=== PATIENT | female | born 1955 | race Caucasian/White ===

== ENCOUNTER 2017-12-12 14:38 | Emergency (ER) | payer OTHER ==
[2017-12-12] MEDS ORDERED: predniSONE 20 MG TAB ONE (15:29)
[2017-12-12] MEDS ORDERED: DIPHENHYDRAMINE 25 MG TAB/CAP ONE (15:29)
[2017-12-12] MEDS ORDERED: FAMOTIDINE 20 MG TAB ONE (15:30)
--- NOTE | 2017-12-12 16:39 | ER ---
Nurse's Notes [facility] Name: Elvi Alaniz Age: 61 yrs Sex: Female : 1955 Arrival Date: 12/12/2017 Time: 14:42 Bed 6 Private MD: None, None Diagnosis: Allergic Hives Presentation: 12/12 14:48 Presenting complaint: Patient states: hives to buttocks, torso, abdomen, and back that aa5 began today around 0700. Transition of care: patient was not received from another setting of care. Risk Assessment: Do you want to hurt yourself or someone else? Patient reports no desire to harm self or others. Initial Sepsis Screen: Does the patient meet any 2 criteria? No. Patient's initial sepsis screen is negative. Does the patient have a suspected source of infection? No. Patient's initial sepsis screen is negative. Care prior to arrival: None. 14:48 Method Of Arrival: Ambulatory aa5 14:48 Acuity: DONNIE 3 aa5 15:00 Onset: The symptoms/episode began/occurred acutely. Anaphylaxis evaluation, no signs or hj symptoms of anaphylaxis were noted. Onset of symptoms was December 12, 2017. Triage Assessment: 15:01 General: Appears in no apparent distress. uncomfortable, Behavior is calm, cooperative, hj appropriate for age. Historical: - Allergies: 14:50 No Known Allergies; aa5 - PMHx: 14:50 Hypertension; aa5 - PSHx: 14:50 Neck Surgery; stent to right leg; aa5 - Immunization history:: Adult Immunizations unknown. - Social history:: Smoking status: Patient uses tobacco products, smokes one-half pack cigarettes per day. - Ebola Screening: : No symptoms or risks identified at this time. Screenin:00 Abuse screen: Denies threats or abuse. Denies injuries from another. Nutritional hj screening: No deficits noted. Tuberculosis screening: No symptoms or risk factors identified. Fall Risk None identified. Assessment: 15:00 Pain: Denies pain. Respiratory: Airway is patent Respiratory effort is even, unlabored, hj Respiratory pattern is regular, symmetrical, Breath sounds are clear. Vital Signs: 14:50 BP 118 / 66; Pulse 125; Resp 16 S; Temp 98.0(TE); Pulse Ox 94% on R/A; Weight 80.74 kg aa5 (R); Height 5 ft. 1 in. (154.94 cm) (R); Pain 0/10; 16:32 BP 120 / 70; Pulse 90; Resp 18; Temp 98.2(O); Pulse Ox 97% on R/A; hj 14:50 Body Mass Index 33.63 (80.74 kg, 154.94 cm) [facility] ED Course: 14:42 Patient arrived in ED. mr 14:42 None, None is Private Physician. mr 14:49 Triage completed. aa5 14:49 Arm band placed on. aa5 14:59 Maximino White LVN is Primary Nurse. em 15:01 Patient has correct armband on for positive identification. Bed in low position. Call hj light in reach. Side rails up X 1. 15:06 Abner Palomo RN is Primary Nurse. hj 15:15 Sanjeev Johnston PA is PHCP. cp 15:15 Sanjeev Wright MD is Attending Physician. cp 16:48 No provider procedures requiring assistance completed. Patient did not have IV access hj during this emergency room visit. Administered Medications: 15:24 Drug: predniSONE 60 mg Route: PO; hj 15:32 Follow up: Response: No adverse reaction hj 15:24 Drug: Benadryl 50 mg Route: PO; hj 15:32 Follow up: Response: No adverse reaction hj 15:24 Drug: Pepcid 20 mg Route: PO; hj 15:32 Follow up: Response: No adverse reaction hj Outcome: 16:39 Discharge ordered by MD. cp 16:48 Discharged to home ambulatory. hj 16:48 Condition: stable 16:48 Discharge instructions given to patient, Instructed on discharge instructions, follow up and referral plans. medication usage, Demonstrated understanding of instructions, follow-up care, medications, Prescriptions given X 4. 16:48 Patient left the ED. hj Signatures: Pari Tatum WhiteMaximino LVN LVN Clarita Robles RN RN [facility] Abner Palomo RN RN hj Page, Corey, PA PA cp
--- NOTE | 2017-12-12 16:40 | EDPHYS ---
Physician Documentation [facility] Name: Elvi Alaniz Age: 61 yrs Sex: Female : 1955 Arrival Date: 12/12/2017 Time: 14:42 Bed 6 Private MD: None, None ED Physician Sanjeev Wright HPI: 12/12 15:25 This 61 yrs old Female presents to ER via Ambulatory with complaints of Hives.cp 15:25 The patient's rash thought to be caused by food. The rash is located on the body cp diffusely. The rash can be described as hives. Onset: The symptoms/episode began/occurred last night. 15:25 Associated signs and symptoms: Pertinent positives: itching, Pertinent negatives: cp difficulty breathing, fever, swelling of lips, swelling of throat, swelling of tongue. 15:25 Severity of symptoms: in the emergency department the symptoms are unchanged. Treatment cp given at home: none. Patient reports rash started after eating mixed cates pie yesterday. Historical: - Allergies: 14:50 No Known Allergies; aa5 - PMHx: 14:50 Hypertension; aa5 - PSHx: 14:50 Neck Surgery; stent to right leg; aa5 - Immunization history:: Adult Immunizations unknown. - Social history:: Smoking status: Patient uses tobacco products, smokes one-half pack cigarettes per day. - Ebola Screening: : No symptoms or risks identified at this time. ROS: 15:30 Constitutional: Negative for body aches, chills, fever, poor PO intake. cp 15:30 Eyes: Negative for injury, pain, redness, and discharge. cp 15:30 ENT: Negative for drainage from ear(s), ear pain, sore throat, difficulty swallowing, difficulty handling secretions. 15:30 Cardiovascular: Negative for chest pain, edema, palpitations. 15:30 Respiratory: Negative for cough, shortness of breath, wheezing. 15:30 Abdomen/GI: Negative for abdominal pain, vomiting, diarrhea, constipation. 15:30 Skin: Positive for rash, diffusely, Negative for cellulitis. 15:30 Neuro: Negative for altered mental status, dizziness, headache, weakness. 15:30 All other systems are negative. Exam: 15:35 Constitutional: The patient appears in no acute distress, alert, awake, cp non-diaphoretic, non-toxic, well developed, well nourished. 15:35 Head/Face: Normocephalic, atraumatic. cp 15:35 Eyes: Periorbital structures: appear normal, Conjunctiva: normal, no exudate, no cp injection, Lids and lashes: appear normal, bilaterally. 15:35 ENT: External ear(s): are unremarkable, Ear canal(s): are normal, clear, TM's: dullness, bilaterally, Nose: is normal, Mouth: is normal, no lip abnormalities, Posterior pharynx: is normal, airway is patent, no erythema, no exudate, no swelling, Voice: is normal. 15:35 Neck: ROM/movement: is normal, is supple, without pain, no range of motions limitations, no meningismus, no nuchal rigidity. 15:35 Chest/axilla: Palpation: is normal, no crepitus, no tenderness. 15:35 Cardiovascular: Rate: tachycardic, Rhythm: regular. 15:35 Respiratory: the patient does not display signs of respiratory distress, Respirations: normal, no use of accessory muscles, no retractions, no splinting, no tachypnea, labored breathing, is not present, Breath sounds: are clear throughout, no decreased breath sounds, no stridor, no wheezing. 15:35 Abdomen/GI: Exam negative for discomfort, distension, guarding. 15:35 Skin: consistent with hives, and is diffusely located. 15:35 Neuro: Orientation: to person, place \T\ time. Mentation: lucid, able to follow commands, cp Cerebellar function: is grossly normal, Motor: moves all fours, strength is normal, Sensation: no obvious gross deficits. Vital Signs: 14:50 BP 118 / 66; Pulse 125; Resp 16 S; Temp 98.0(TE); Pulse Ox 94% on R/A; Weight 80.74 kg aa5 (R); Height 5 ft. 1 in. (154.94 cm) (R); Pain 0/10; 16:32 BP 120 / 70; Pulse 90; Resp 18; Temp 98.2(O); Pulse Ox 97% on R/A; hj 14:50 Body Mass Index 33.63 (80.74 kg, 154.94 cm) aa5 MDM: 15:15 Patient medically screened. cp 15:30 Differential diagnosis: allergic reaction, anaphylaxis, angioedema. cp 16:37 Data reviewed: vital signs, nurses notes, and as a result, I will discharge patient. cp 16:37 Counseling: I had a detailed discussion with the patient and/or guardian regarding: the cp historical points, exam findings, and any diagnostic results supporting the discharge/admit diagnosis, to return to the emergency department if symptoms worsen or persist or if there are any questions or concerns that arise at home. Response to treatment: the patient's symptoms have mildly improved after treatment, and as a result, I will discharge patient. 12/12 16:25 Order name: Vital Signs: please repeat complete set; Complete Time: 16:32 cp Administered Medications: 15:24 Drug: predniSONE 60 mg Route: PO; hj 15:32 Follow up: Response: No adverse reaction hj 15:24 Drug: Benadryl 50 mg Route: PO; hj 15:32 Follow up: Response: No adverse reaction hj 15:24 Drug: Pepcid 20 mg Route: PO; hj 15:32 Follow up: Response: No adverse reaction hj Disposition: 12/13 16:13 Co-signature as Attending Physician, Sanjeev Wright MD I agree with the assessment and [facility] plan of care. Disposition: 12/12/17 16:39 Discharged to Home. Impression: Allergic Hives. - Condition is Stable. - Discharge Instructions: Hives. - Prescriptions for diphenhydramine HCl 50 mg Oral capsule - take 1 capsule by ORAL route 3 times per day no driving while taking medication; 15 capsule. Pepcid 20 mg Oral Tablet - take 1 tablet by ORAL route every 12 hours for 5 days; 10 tablet. Prednisone 20 mg Oral Tablet - take 2 tablets by ORAL route once daily for 5 days start morning of 12-13-2017; 10 tablet. Albuterol Sulfate 90 mcg/actuation - inhale 1-2 puff by INHALATION route every 4-6 hours; 1 Inhaler. - Medication Reconciliation Form, Thank You Letter, Antibiotic Education, Prescription Opioid Use form. - Follow up: Private Physician; When: 1 - 2 days; Reason: Recheck today's complaints. - Problem is new. - Symptoms have improved. Signatures: Sanjeev Wright MD MD cha Calderon, Audri RN RN aa5 Abner Palomo RN RN hj Sanjeev Johnston PA PA cp Corrections: (The following items were deleted from the chart) 12/12 16:48 16:39 12/12/2017 16:39 Discharged to Home. Impression: Allergic Hives. Condition is hj Stable. Discharge Instructions: Hives. Prescriptions for diphenhydramine HCl 50 mg Oral capsule - take 1 capsule by ORAL route 3 times per day no driving while taking medication; 15 capsule, Pepcid 20 mg Oral Tablet - take 1 tablet by ORAL route every 12 hours for 5 days; 10 tablet, Prednisone 20 mg Oral Tablet - take 2 tablets by ORAL route once daily for 5 days start morning of 12-13-2017; 10 tablet. and Forms are Medication Reconciliation Form, Thank You Letter, Antibiotic Education, Prescription Opioid Use. Follow up: Private Physician; When: 1 - 2 days; Reason: Recheck today's complaints. Problem is new. Symptoms have improved. cp
== END 2017-12-12 16:48 | disposition home or self-care (01) ==
LOC: ER 14:38
DX: L50.0 Allergic urticaria (principal); I10 Essential (primary) hypertension; F17.210 Nicotine dependence, cigarettes, uncomplicated
CPT/HCPCS: 99283; J7512

== ENCOUNTER 2022-04-24 17:31 | Inpatient (IN) | payer OTHER ==
--- OUTSIDE RECORDS SUMMARY | 2022-04-24 17:34 | XMS REPORT | Continuity of Care Document ---
:1955 Author Organization [facility] Address [address] [place] [address] [address] [place] [address] Care Team Providers Name Role Phone PADDY SORENSEN Attending Clinician Unavailable MD PADDY SORENSEN Attending Clinician Unavailable PADDY SORENSEN Admitting Clinician Unavailable MD PADDY SORENSEN Admitting Clinician Unavailable Problems This patient has no known problems. Allergies, Adverse Reactions, Alerts This patient has no known allergies or adverse reactions. Medications This patient has no known medications. Procedures This patient has no known procedures. Encounters Start End Encounter Admission Attending Care Care Encounter Source Date/Time Date/Time Type Type Clinicians Facility Department ID 2022-04-14 2022-04-14 Outpatient [facility] [id number] [place] 00:00:00 00:00:00 PADDY [address] 2021-04-08 2021-04-08 Outpatient [facility] [id number] [place] 00:00:00 00:00:00 PADDY [address] 2021-01-03 2021-01-04 Outpatient [facility] [id number] [place] 00:00:00 00:00:00 PADDY [address] 2020-12-03 2020-12-03 Outpatient [facility] [id number] [place] 00:00:00 00:00:00 PADDY [address] 2020-11-19 2020-11-19 Outpatient [facility] [id number] [place] 00:00:00 00:00:00 PADDY [address] 2020-10-08 2020-10-08 Outpatient [facility] [id number] [place] 00:00:00 00:00:00 PADDY [address] 2020-09-26 2020-09-26 Outpatient [facility] [id number] [place] 00:00:00 00:00:00 PADDY [address] 2020-09-25 2020-09-25 Outpatient [facility], [facility] [id number] [place] 00:00:00 00:00:00 PADDY [address] 2020-09-25 2020-09-25 Outpatient [facility], [facility] [id number] [place] 00:00:00 00:00:00 PADDY [address] 2020-09-25 2020-09-25 Outpatient [facility], [facility] [id number] [place] 00:00:00 00:00:00 PADDY [address] 2020-09-17 2020-09-17 Outpatient [facility], [facility] [id number] [place] 00:00:00 00:00:00 PADDY [address] 2020-09-17 2020-09-17 Outpatient [facility]OR[facility], [facility] [id number] [place] 00:00:00 00:00:00 PADDY [address] Results Test Description Test Time Test Comments Results Result Comments Source SARS-CoV-2 (COVID-19) RNA [Presence] in Respiratory sp ecimen by 2020-09-26 00:05:28 DONNY with probe detection Test Item Value Reference Range Interpretation Comme nts SARS-CoV-2 (COVID-19) RNA [Presence] in Respiratory Not detected No t-Detected specimen by DONNY with probe detection (test code = 51615-2) [facility]
[2022-04-24 19:48] LABS: Protime INR 2.05
[2022-04-24] MEDS ORDERED: VANCOMYCIN 1 GM/VIAL ONE (19:54)
[2022-04-24] MEDS ORDERED: VANCOMYCIN 500 MG/VIAL ONE (19:54)
[2022-04-24] MEDS ORDERED: NA CHLORIDE 0.9% 250 ML ONE (19:54)
[2022-04-24 20:00] LABS: Albumin 2.9 g/dL (3.4-5.0); Bilirubin Total 0.3 mg/dL (0.2-1.0); Potassium 3.7 mmol/L (3.5-5.1); Protein, Total 7.1 g/dL (6.4-8.2)
[2022-04-24 20:02] LABS: Absolute Lymphocytes (CBC) 1.6 K/uL (0.7-4.9); Hematocrit 44.1 % (36.0-45.0); Lymphocytes % 15.7 % (15.3-44.8); MCV 102.5 fL (80-100); MPV 7.9 fL (7.6-11.3)
[2022-04-24 20:26] LABS: SARS-CoV-2 Antigen Rapid Res Negative (Negative)
--- NOTE | 2022-04-24 20:26 | EDPHYS ---
Physician Documentation [facility] Name: Elvi Alaniz Age: 66 yrs Sex: Female : 1955 Arrival Date: 04/24/2022 Time: 17:35 Bed 16 Private MD: Sha Lowry C ED Physician Sukhdeep Price HPI: 04/24 19:42 This 66 yrs old Female presents to ER via Wheelchair with complaints of Sent By Alen. snw 19:42 The patient presents with pain, swelling, tenderness, redness. The complaints affect snw the bilateral lower legs. Context: The problem was sustained at home, resulted from a chronic condition. Onset: The symptoms/episode began/occurred gradually. Severity of symptoms: At their worst the symptoms were moderate. The patient has experienced similar episodes in the past, multiple times. The patient has been recently seen by a physician: the patient's primary care provider, Dr. Lowry yesterday. Historical: - Allergies: 17:44 No Known Allergies; vg1 - Home Meds: 17:44 Xarelto oral [Active]; Lisinopril Oral [Active]; vg1 - PMHx: 17:44 Hypertension; Chronic obstructive lung disease; vg1 - PSHx: 17:44 Hysterectomy; Cholecystectomy; vg1 - Immunization history:: Client reports receiving the 2nd dose of the Covid vaccine. - Social history:: Smoking status: Patient reports the use of cigarette tobacco products, smokes one-half pack cigarettes per day. ROS: 18:16 Constitutional: Negative for fever, chills, and weight loss, Eyes: Negative for injury, snw pain, redness, and discharge, ENT: Negative for injury, pain, and discharge, Neck: Negative for injury, pain, and swelling, Cardiovascular: Negative for chest pain, palpitations, and edema, Respiratory: Negative for shortness of breath, cough, wheezing, and pleuritic chest pain, Abdomen/GI: Negative for abdominal pain, nausea, vomiting, diarrhea, and constipation, Back: Negative for injury and pain, : Negative for injury, bleeding, discharge, and swelling, Skin: Negative for injury, rash, and discoloration, Neuro: Negative for headache, weakness, numbness, tingling, and seizure. 18:16 MS/extremity: Positive for erythema, swelling, tenderness, of the bilateral lower extremities. Exam: 18:14 Head/Face: Normocephalic, atraumatic. ENT: Nares patent. No nasal discharge, no snw septal abnormalities noted. Tympanic membranes are normal and external auditory canals are clear. Oropharynx with no redness, swelling, or masses, exudates, or evidence of obstruction, uvula midline. Mucous membranes moist. 18:14 Neck: Trachea midline, no thyromegaly or masses palpated, and no cervical lymphadenopathy. Supple, full range of motion without nuchal rigidity, or vertebral point tenderness. No Meningismus. Chest/axilla: Normal chest wall appearance and motion. Nontender with no deformity. No lesions are appreciated. Cardiovascular: Regular rate and rhythm with a normal S1 and S2. No gallops, murmurs, or rubs. Normal PMI, no JVD. No pulse deficits. Respiratory: Lungs have equal breath sounds bilaterally, clear to auscultation and percussion. No rales, rhonchi or wheezes noted. No increased work of breathing, no retractions or nasal flaring. Abdomen/GI: Soft, non-tender, with normal bowel sounds. No distension or tympany. No guarding or rebound. No evidence of tenderness throughout. Back: No spinal tenderness. No costovertebral tenderness. Full range of motion. Neuro: Awake and alert, GCS 15, oriented to person, place, time, and situation. Cranial nerves II-XII grossly intact. Motor strength 5/5 in all extremities. Sensory grossly intact. Cerebellar exam normal. Normal gait. 18:14 Constitutional: The patient appears alert, awake, pale. 18:14 Eyes: Conjunctiva: pale. 18:14 Skin: Appearance: Color: pale, lower extremities bilaterally with hyperemia, weeping, tightness. Vital Signs: 17:39 BP 130 / 66; Pulse 94; Resp 22; Temp 99.1(O); Pulse Ox 93% on R/A; Weight 77.56 kg; vg1 Height 5 ft. 1 in. (154.94 cm); Pain 9/10; 17:39 Body Mass Index 32.31 (77.56 kg, 154.94 cm) vg1 MDM: 17:54 Patient medically screened. snw 19:55 Data reviewed: vital signs, nurses notes. Data interpreted: Pulse oximetry: on room air snw is 93 %. Interpretation: hypoxia. Plan: O2 by NC applied. Counseling: I had a detailed discussion with the patient and/or guardian regarding: the historical points, exam findings, and any diagnostic results supporting the discharge/admit diagnosis, lab results, radiology results, the need for further work-up and treatment in the hospital. Physician consultation: Sukhdeep Price MD and will see patient in ED, would like admission per Dr. Sha Lowry MD. 04/24 17:55 Order name: Blood Culture Adult (2) snw 04/24 17:55 Order name: CBC with Diff; Complete Time: 13:26 snw 04/24 17:55 Order name: CMP; Complete Time: 13:26 snw 04/24 17:55 Order name: Lactate; Complete Time: 20:19 snw 04/24 17:55 Order name: Protime (+inr); Complete Time: 19:49 snw 04/24 17:55 Order name: Ptt, Activated; Complete Time: 19:49 snw 04/24 19:17 Order name: SARS RAPID; Complete Time: 13:26 snw 04/24 20:36 Order name: Vancomycin Level Trough EDMS 04/24 20:36 Order name: Vancomycin Peak; Complete Time: 13:26 EDMS 04/24 20:36 Order name: Basic Metabolic Panel EDMS 04/24 20:36 Order name: Basic Metabolic Panel; Complete Time: 13:26 EDMS 04/24 20:36 Order name: CBC with Automated Diff EDMS 04/24 20:36 Order name: CBC with Automated Diff; Complete Time: 13:26 EDMS 04/24 21:16 Order name: Vancomycin Level Trough; Complete Time: 13:26 EDMS 04/24 17:55 Order name: Accucheck; Complete Time: 18:24 snw 04/24 17:55 Order name: Cardiac monitoring; Complete Time: 18:24 snw 04/24 17:55 Order name: EKG - Nurse/Tech; Complete Time: 18:24 snw 04/24 17:55 Order name: IV Saline Lock - Large Bore; Complete Time: 19:12 snw 04/24 17:55 Order name: Labs collected and sent; Complete Time: 19:12 snw 04/24 17:55 Order name: O2 Per Protocol; Complete Time: 18:24 snw 04/24 17:55 Order name: O2 Sat Monitoring; Complete Time: 18:24 snw 04/24 17:55 Order name: Vital Signs; Complete Time: 18:24 snw 04/24 18:14 Order name: US LE Arterial Bilateral; Complete Time: 13:26 snw EC:20 Rate is 91 beats/min. Rhythm is regular. QRS [place] is Normal. [place] interval is normal. No snw ST changes noted. Clinical impression: Normal ECG. Administered Medications: 20:07 Drug: vancoMYCIN 1.5 grams Route: IVPB; Rate: calculated rate; Site: right forearm; ke1 21:45 Follow up: IV Status: Completed infusion ke1 21:46 Follow up: Response: No adverse reaction ke1 21:46 Drug: Zosyn (piperacillin-tazobactam) 3.375 grams Route: IVPB; Infused Over: 60 mins; ke1 Site: right forearm; Disposition: 20:24 Co-signature as Attending Physician, Sukhdeep Price MD I agree with the assessment and kdr plan of care. Disposition Summary: 04/24/22 20:25 Hospitalization Ordered Hospitalization Status: Inpatient Admission kdr Provider: Drew Lowry kdr Condition: Fair kdr Problem: new kdr Symptoms: have improved kdr Bed/Room Type: Standard kdr Location: Telemetry/MedSurg (Inpatient)(04/25/22 05:34) Room Assignment: 405(04/25/22 05:34) Diagnosis - Cellulitis of left lower limb kdr - Cellulitis of right lower limb kdr Forms: - Medication Reconciliation Form kdr - SBAR form kdr Signatures: Dispatcher [employer] EDDC Bita Johnston RN RN mw Rittger, Kevin, MD MD kdr Adrienne Vieyra, RELAY SHOP SUPERVISOR-C RELAY SHOP SUPERVISOR-Csnw Yesenia Brasher RN RN bb Garcia, Victoria RN RN vg1 Cynthia Velazquez RN RN ke1 Corrections: (The following items were deleted from the chart) 21:44 20:25 Telemetry/MedSurg (Inpatient) kdr 21:44 20:25 kdr herb 04/25 05:34 04/24 21:44 [facility] ER HOLD bb 04/25 05:34 04/24 21:44 ERHOLD- herb
--- NOTE | 2022-04-24 20:26 | ER ---
Nurse's Notes [facility] Name: Elvi Alaniz Age: 66 yrs Sex: Female : 1955 Arrival Date: 04/24/2022 Time: 17:35 Bed 16 Private MD: Sha Lowry C Diagnosis: Cellulitis of left lower limb;Cellulitis of right lower limb Presentation: 04/24 17:39 Chief complaint: Patient states: Sent from Dr Lowry's office due to [place] leg cellulitis. vg1 Coronavirus screen: Vaccine status: Patient reports receiving the 2nd dose of the covid vaccine. Client denies travel out of the [place] in the last 14 days. Ebola Screen: Patient negative for fever greater than or equal to 101.5 degrees Fahrenheit, and additional compatible Ebola Virus Disease symptoms. Initial Sepsis Screen: Does the patient meet any 2 criteria? RR > 20 per min. HR > 90 bpm. Does the patient have a suspected source of infection?. Risk Assessment: Do you want to hurt yourself or someone else? Patient reports no desire to harm self or others. Onset of symptoms was April 17, 2022. 17:39 Method Of Arrival: Wheelchair vg1 17:39 Acuity: DONNIE 3 vg1 Triage Assessment: 17:44 General: Appears uncomfortable, Behavior is calm, cooperative. Pain: Complains of pain vg1 in right leg and left leg Pain currently is 9 out of 10 on a pain scale. Neuro: Level of Consciousness is awake, alert, obeys commands, Oriented to person, place, time, situation. Respiratory: Airway is patent Respiratory effort is even, unlabored. Derm: Rash noted that is red. Historical: - Allergies: 17:44 No Known Allergies; vg1 - Home Meds: 17:44 Xarelto oral [Active]; Lisinopril Oral [Active]; vg1 - PMHx: 17:44 Hypertension; Chronic obstructive lung disease; vg1 - PSHx: 17:44 Hysterectomy; Cholecystectomy; vg1 - Immunization history:: Client reports receiving the 2nd dose of the Covid vaccine. - Social history:: Smoking status: Patient reports the use of cigarette tobacco products, smokes one-half pack cigarettes per day. Screenin:00 Abuse screen: Denies threats or abuse. Denies injuries from another. Nutritional bp screening: No deficits noted. Tuberculosis screening: No symptoms or risk factors identified. Fall Risk None identified. Assessment: 18:00 General: SEE TRIAGE NOTE. bp Vital Signs: 17:39 BP 130 / 66; Pulse 94; Resp 22; Temp 99.1(O); Pulse Ox 93% on R/A; Weight 77.56 kg; vg1 Height 5 ft. 1 in. (154.94 cm); Pain 9/10; 17:39 Body Mass Index 32.31 (77.56 kg, 154.94 cm) vg1 ED Course: 17:35 Patient arrived in ED. rg4 17:35 Sha Lowry MD is Private Physician. rg4 17:35 Adrienne [facility]C [facility] snw 17:35 Clifford Morton MD is Attending Physician. snw 17:44 Triage completed. vg1 17:44 Arm band placed on. vg1 17:47 Raymond Boggs RN is Primary Nurse. bp 18:00 Patient has correct armband on for positive identification. Bed in low position. Call bp light in reach. Side rails up X2. 19:10 Inserted saline lock: 22 gauge in right forearm, using aseptic technique. Blood bp collected. 19:28 Primary Nurse role handed off by Raymond Boggs RN jl7 19:37 Cynthia Velazquez RN is Primary Nurse. ke1 19:54 Attending Physician role handed off by Clifford Morton MD kdr 19:54 Sukhdeep Price MD is Attending Physician. kdr 20:03 US LE Arterial Bilateral In Process Unspecified. EDMS 20:24 Drew Lowry MD is Hospitalizing Provider. kdr Administered Medications: 20:07 Drug: vancoMYCIN 1.5 grams Route: IVPB; Rate: calculated rate; Site: right forearm; ke1 21:45 Follow up: IV Status: Completed infusion ke1 21:46 Follow up: Response: No adverse reaction ke1 21:46 Drug: Zosyn (piperacillin-tazobactam) 3.375 grams Route: IVPB; Infused Over: 60 mins; ke1 Site: right forearm; Outcome: 20:25 Decision to Hospitalize by Provider. kdr 04/25 08:19 Patient left the ED. eb Signatures: Dispatcher [employer] EDMS Sukhdeep Price MD MD kdr Adrienne Vieyra, DATA ENTRY REPRESENTATIVE-C DATA ENTRY REPRESENTATIVE-Csnw Lorena Simmons rg4 Mack Duque, RN RN jl7 Raymond Boggs, RN RN Salina Acosta [place], RN RN vg1 Cynthia Velazquez, RN RN ke1
[2022-04-24] MEDS ORDERED: VANCOMYCIN 1 GM in NA CHLORIDE 0.9% 250 ML IVPB SCH (20:29)
--- NOTE | 2022-04-24 20:29 | RAD REPORT ---
EXAM DESCRIPTION: US - Lower Extremity Arterial Bilat - 04/24/2022 8:01 pm CLINICAL HISTORY: Leg pain COMPARISON: None FINDINGS: Right common femoral, superficial femoral and popliteal arteries demonstrate monophasic waveforms The right posterior tibial and dorsalis pedis arteries demonstrate monophasic waveforms The left common femoral, superficial femoral and popliteal arteries demonstrate monophasic waveforms The left posterior tibial and dorsalis pedis arteries demonstrate monophasic waveforms Grayscale, color and spectral analysis performed on all vessels IMPRESSION: Bilateral monophasic arterial waveforms lower extremities may indicate significant aorto iliac disease
[2022-04-24] MEDS ORDERED: VANCOMYCIN 1.5 GM in NA CHLORIDE 0.9% 500 ML IVPB SCH (21:00)
[2022-04-24] MEDS ORDERED: NA CHLORIDE 0.9% 100 ML IV ONE (21:27)
[2022-04-24] MEDS ORDERED: PIPERACIL/TAZO 3.375 GM VIAL IV ONE (21:28)
[2022-04-25] MEDS: PIPER TAZO 3.375 GM in NA CHLORIDE 0.9% 100 ML IV SCH ×3 (01:00→17:01)
[2022-04-25 01:40] LABS: Absolute Lymphocytes (CBC) 1.6 K/uL (0.7-4.9); Hematocrit 41.4 % (36.0-45.0); MCV 102.6 fL (80-100); MPV 7.9 fL (7.6-11.3); RBC Red Blood Cell Count 4.03 M/uL (3.86-4.86)
[2022-04-25] MEDS: IPRATROPIUM BROM 0.5MG/2.5ML NEB SCH ×4 (02:00→20:00)
[2022-04-25] MEDS: ALBUTEROL 2.5 MG/3 ML NEB SOL NEB SCH ×4 (02:00→20:00)
[2022-04-25] MEDS ORDERED: ACETAMINOPHEN 500 MG TAB ONE (06:24)
[2022-04-25] MEDS: ACETAMINOPHEN 500 MG TAB PO PRN ×2 (07:20→19:04)
[2022-04-25] MEDS ORDERED: VANCOMYCIN 1 GM in NA CHLORIDE 0.9% 250 ML IVPB SCH (09:00)
[2022-04-25] MEDS: buPROPion HCL 100 MG TAB PO SCH (09:11)
--- NOTE | 2022-04-25 11:30 | RAD REPORT ---
EXAM DESCRIPTION: RAD - Chest Pa And Lat (2 Views) - 04/25/2022 11:06 am CLINICAL HISTORY: COPD COMPARISON: <Comparisons> FINDINGS: Lines: None. Lungs: No evidence of edema or pneumonia. Pleural: No significant pleural effusions or pneumothorax. Cardiac: Similar size configuration. Mediastinum: Within normal limits. Bones: No acute fractures. Other: None IMPRESSION: No acute cardiopulmonary disease.
--- NOTE | 2022-04-25 11:32 | RAD REPORT ---
EXAM DESCRIPTION: US - Extrem Venous W Compress Abe - 04/25/2022 11:27 am CLINICAL HISTORY: leg edema COMPARISON: <Comparisons> TECHNIQUE: Real-time sonographic evaluation of the lower extremity deep venous systems was performed using color Doppler, grayscale, and compression. FINDINGS: Bilateral lower extremities. Normal compressibility, flow augmentation, phasic flow and spontaneous flow is identified in both the left and right lower extremity deep venous systems. No intraluminal filling defects seen. IMPRESSION: No DVT in either lower extremity.
[2022-04-25] MEDS ORDERED: INFLUENZA VACCINE (for 6+ mo) 0.5 ML DOSE IMVAC ONE (12:00)
[2022-04-25] MEDS ORDERED: PNEUMOCOCCAL VACCINE 0.5 ML IMVAC ONE (12:00)
[2022-04-25] MEDS: SILVER SULFADIAZINE 1% 50 GM TOP SCH ×2 (12:55→22:50)
--- NOTE | 2022-04-25 13:27 | HP ---
Date of Admission: 04/25/2022 Chief Complaint: Leg swelling and redness of leg and pain in both legs. History Of Present Illness: This is a 66-year-old pleasant female patient with history of significant peripheral vascular disease in both legs under care of applications engineer manufacturing, Dr. Fagan, in [place] and had stent placement in her leg and recently saw him and he started her on Xarelto 20 mg daily and also started her on Levaquin 500 mg daily as of April 16, 2022, for cellulitis of right lower extremity. Patient has this redness of both lower extremities that she reports is looking like the way it looks lately for last 2 weeks and also noted to have some clear colored fluid discharge from the lower part of the right leg. Denies any fever. Has some pain and discomfort in this leg. Patient reports that Dr. Fagan is planning to do another peripheral angiogram for evaluation of her leg circulation, but he is waiting for her leg infection problem to get better. When I saw her at office on 04/23/2022 with all these problems, I recommended her to get admitted to the hospital and patient refused and reported that she would go to hospital next day. She came into the emergency room late yesterday evening and after she was evaluated, she was admitted to the hospital. Allergies: TO SULFA DRUGS CAUSING NAUSEA AND VOMITING. Medications: Albuterol inhaler 2 puffs 4 times a day as needed for shortness of breath, Trilogy inhaler 1 puff daily, atorvastatin 40 mg daily at bedtime, bupropion 100 mg daily, trazodone 50 mg daily at bedtime, Xarelto 20 mg daily, nitroglycerin p.r.n., lisinopril/HCTZ 10/12.5 one tab by mouth 2 times a day, and Levaquin 500 mg daily. Review of Systems: Cardiovascular: As mentioned above. Dermatology: As mentioned above. Respiratory: Shortness of breath with activity. All other systems reviewed and negative. Past Medical History: Significant for COPD, hypertension, hyperlipidemia, coronary artery disease, peripheral vascular disease, anxiety, insomnia. Past Surgical History: Angioplasty with stent placement of her right leg in 2016, 2017, and 2020 and left leg in 2020. Cholecystectomy, tubal ligation, and hysterectomy. Family History: Father , had diabetes and kidney failure. Mother , details unknown. Sister has hypertension. Social History: Positive for smoking. Alcohol use negative. Physical Examination: Vital Signs: This morning, temperature 98.9, pulse 93, respiratory rate 16, blood pressure 109/61, oxygen saturation 99%. Height 5 feet 1 inch, weight 170 pounds. General: Awake, alert, oriented, not in distress. HEENT: Head atraumatic, normocephalic. Conjunctivae nonerythematous. Sclerae white. Mouth, no thrush or edema noted. Ears/Nose, no mass, lesion, discharge noted. Neck: Supple. No JVD, lymph nodes, bruit, thyromegaly noted. Lungs: Bilateral good equal air entry. Clear to auscultation. No rhonchi. No rales. Heart: Normal heart sounds, no murmur or gallop. Abdomen: Soft, bowel sounds normal. No guarding, rigidity, tenderness, mass, hepatosplenomegaly, distention, or bruit noted. Extremities: Bilateral grade 2 pedal edema with redness of skin extending in both lower extremities from the knees all the way down to her toes. There is no open wound. Right lower posterolateral extremity had lot of excoriated skin with clear fluid discharge when she was at office 2 days ago. Today, I do not see any clear fluid discharge and all that excoriated skin has scabs present over it. Skin: No rash, ulcer, cellulitis. Lymphatics: No lymph node enlargement in neck, supraclavicular, infraclavicular region. Neuro: No focal neurological deficit. Chest: Unremarkable. External Genitalia: Deferred. Rectal: Deferred. Laboratory Data: Yesterday, white count 10.3, hemoglobin 14.4, platelets 248. Today, white count 11.6, hemoglobin 13.6, platelets 251. Yesterday, sodium 134, potassium 3.7, chloride 97, bicarb 32, BUN 8, creatinine 0.73, glucose 126. Liver function tests are unremarkable. Yesterday, sodium 135, potassium 4, chloride 99, bicarb 35, BUN 7, creatinine 0.74, glucose 118. Arterial Doppler of both lower extremities shows bilateral monophasic arterial waveform indicating significant aortoiliac disease. Impression: 1. Cellulitis, bilateral lower extremity. 2. Lymphedema, bilateral legs. 3. Peripheral vascular disease. 4. Coronary artery disease. 5. Hypertension. 6. Hyperlipidemia. 7. Chronic obstructive pulmonary disease. 8. Anxiety. 9. Insomnia. Plan: We will admit patient to hospital for further evaluation and management of this problem. Patient is appropriate for inpatient and is expected to spend 2 midnights in hospital. We will go ahead and give her antibiotic vancomycin and Zosyn per order. Consult Pharmacy to manage vancomycin dosing. We will get a venous Doppler done on both lower extremities today and get a chest x-ray done today. For COPD, we will continue nebulizer treatment using albuterol and Atrovent per order. For hypertension, there is no need for antihypertensive medication at this point considering the patient's blood pressure readings and at appropriate time, we will decide about starting her antihypertensive medication. For hyperlipidemia, we will go ahead and continue her statin therapy, which is atorvastatin 40 mg daily at bedtime and get a fasting lipid profile tomorrow. We will also start applying Silvadene cream topically to the right lower leg. I did talk to patient regarding importance of getting lymphedema treatment once the cellulitis improves as she has chronic bilateral leg swelling and we will refer her to outpatient lymphedema clinic once this leg problem gets resolved and all these details were discussed with her today. Patient was advised to quit smoking. Unfortunately, she has a longstanding history of smoking. We will continue her anxiety medication, which is bupropion and trazodone for insomnia. MATT/MODL Voice ID: [id number] SANDY
[2022-04-25] MEDS: DIPHENHYDRAMINE 25 MG TAB/CAP PO PRN (17:01)
[2022-04-25] MEDS: RIVAROXABAN 20 MG TABLET PO SCH (17:01)
[2022-04-25] MEDS: NICOTINE 14 MG/PAT TD SCH (18:44)
[2022-04-25] MEDS ORDERED: VANCOMYCIN 1.5 GM in NA CHLORIDE 0.9% 500 ML IVPB SCH (21:00)
[2022-04-25] MEDS: ATORVASTATIN 40 MG TAB PO SCH (22:50)
[2022-04-25] MEDS: TRAZODONE 50 MG TABLET PO SCH (22:50)
[2022-04-25] MEDS: VANCOMYCIN 1.5 GM in NA CHLORIDE 0.9% 500 ML IVPB SCH (22:51)
[2022-04-26] MEDS: HYDROCODONE/APAP 5/325 MG TAB PO PRN ×3 (00:37→21:09)
[2022-04-26] MEDS: DIPHENHYDRAMINE 25 MG TAB/CAP PO PRN ×2 (00:49→21:09)
[2022-04-26] MEDS: ALBUTEROL 2.5 MG/3 ML NEB SOL NEB SCH ×2 (02:00→08:00)
[2022-04-26] MEDS: IPRATROPIUM BROM 0.5MG/2.5ML NEB SCH ×2 (02:00→08:00)
[2022-04-26] MEDS: PIPER TAZO 3.375 GM in NA CHLORIDE 0.9% 100 ML IV SCH ×3 (02:34→16:29)
[2022-04-26 06:34] LABS: Absolute Lymphocytes (CBC) 1.9 K/uL (0.7-4.9); Hematocrit 38.9 % (36.0-45.0); Lymphocytes % 24.5 % (15.3-44.8); MPV 7.9 fL (7.6-11.3); RBC Red Blood Cell Count 3.78 M/uL (3.86-4.86)
[2022-04-26 06:53] LABS: Magnesium 2.5 mg/dL (1.8-2.4); Potassium 4.1 mmol/L (3.5-5.1)
[2022-04-26] MEDS: NICOTINE 14 MG/PAT TD SCH (08:38)
[2022-04-26] MEDS: buPROPion HCL 100 MG TAB PO SCH (08:38)
[2022-04-26] MEDS: SILVER SULFADIAZINE 1% 50 GM TOP SCH ×2 (08:40→21:10)
[2022-04-26] MEDS ORDERED: IPRATROPIUM BROM 0.5MG/2.5ML NEB PRN (09:22)
[2022-04-26] MEDS ORDERED: ALBUTEROL 2.5 MG/3 ML NEB SOL NEB PRN (09:22)
[2022-04-26 09:35] LABS: Folic Acid, (Folate) 5.1 ng/mL (3.1-17.5)
--- NOTE | 2022-04-26 12:59 | PN ---
Date of Progress Note: 04/26/2022 Subjective: Patient was seen this morning for followup. No new complaints or problems reported by t he patient. Objective: General: Lying in bed not in distress. Vital Signs: Reviewed. HEENT: Unremarkable. Lungs: Clear to auscultation. Heart: Sounds normal. Abdomen: Soft. Bowel sounds normal. No guarding, rigidity, tenderness, distention. Extremities: Bilateral leg edema, grade 1, overall is better than before. Redness of the skin is st ill persistent in both lower extremities below the knee all the way down to her toes. There is no op en wound, no discharge, no bleeding. Laboratory Data: White count 7.9, hemoglobin 12.8, platelets 216. Sodium 136, potassium 4.1, chlori de 102, bicarb 34, BUN 10, creatinine 0.75, glucose 99. Triglyceride 89, total cholesterol 87, LDL 3 7, HDL 32. Her venous Doppler of both lower extremities was negative for DVT. Chest x-ray, no acute cardiopulmonary changes. Impression: 1.Cellulitis, bilateral lower extremity. 2.Peripheral vascular disease. 3.Chronic obstructive pulmonary disease. 4.Lymphedema, legs. Plan: Patient started to have some itching in her both lower extremities, mostly lower thigh and low er legs. No rash noted anywhere on the body and Benadryl was ordered. Patient continues to smoke an d yesterday she requested to go down to smoke and we have also ordered nicotine patch for her. We wi ll continue current IV antibiotics. I had a long discussion with her today regarding smoking related lung damage and vascular problem and with her ongoing smoking and longstanding history of smoking, h er overall prognosis is guarded with all this health problems and she was strongly advised to quit smoking completely. I will see he r tomorrow for followup. MATT/MODL Voice ID: [id number] Report ID: [id number]
[2022-04-26] MEDS: RIVAROXABAN 20 MG TABLET PO SCH (16:30)
[2022-04-26] MEDS: ATORVASTATIN 40 MG TAB PO SCH (21:09)
[2022-04-26] MEDS: TRAZODONE 50 MG TABLET PO SCH (21:09)
[2022-04-26] MEDS: VANCOMYCIN 1.5 GM in NA CHLORIDE 0.9% 500 ML IVPB SCH (21:10)
[2022-04-27] MEDS: PIPER TAZO 3.375 GM in NA CHLORIDE 0.9% 100 ML IV SCH ×3 (01:34→16:54)
[2022-04-27] MEDS: DIPHENHYDRAMINE 25 MG TAB/CAP PO PRN (02:09)
[2022-04-27] MEDS ORDERED: CYANOCOBALAMIN 1000MCG/ML INJ IM ONE (07:00)
[2022-04-27] MEDS: DULERA 200/5 (MOMETASONE/FORMOTEROL) INHALER IH SCH ×2 (09:19→21:55)
[2022-04-27] MEDS: NICOTINE 14 MG/PAT TD SCH (09:23)
[2022-04-27] MEDS: buPROPion HCL 100 MG TAB PO SCH (09:25)
[2022-04-27] MEDS: SILVER SULFADIAZINE 1% 50 GM TOP SCH ×2 (09:26→21:00)
[2022-04-27] MEDS: DOXYCYCLINE 100 MG CAP PO SCH ×2 (11:46→21:03)
[2022-04-27] MEDS ORDERED: FLUOCINONIDE 0.05% CREAM 30GM TOP PRN (11:47)
--- NOTE | 2022-04-27 12:17 | EKG ---
Test Date: 2022-04-24 Test Time: 18:17:31 Electrogalvanizing Machine Operator: BP MEASUREMENT RESULTS: Intervals: Rate: 91 VA: 146 QRSD: 72 QT: 348 QTc: 428 [place]: P: 61 VA: 146 QRS: 59 T: 22 INTERPRETIVE STATEMENTS: Normal sinus rhythm Normal ECG Compared to ECG 11/10/2010 03:05:17 No significant changes Electronically Signed On 04-27-22 12:13:17 FIELD MERCHANDISER by Stas Rivera
--- NOTE | 2022-04-27 15:53 | CON ---
Date of Consultation: 04/27/2022 Reason For Consultation: Right leg wound with lymphedema and cellulitis. History Of Present Illness: The patient is a 66-year-old female, who was admitted on Wednesday night cellulitis, lymphedema, pain in both legs. The patient normally sees Dr. Fagan and the patient has had multiple stents placed in both lower extremities. The patient was recently started on Xarelto a nd she was saw Dr. Fagan as an outpatient last week and was started on Levaquin; however, the redness and swelling did not improve. She saw Dr. Lowry last , was advised for admission for IV antib iotics. She said she had some work to do and she came into the hospital on Wednesday night. She was ad mitted. IV antibiotics were started. She does have a wound on the right leg, which is somewhat weep ing, but has dried up since admission. There is swelling and redness and pain associated in both leg s. There is sore throat, runny nose, cough, headaches, or dizziness. No chest pain. No fever or ch ills. Review of Systems: Otherwise unremarkable. Past Medical History: COPD, hypertension, hyperlipidemia, coronary artery disease, peripheral vascul ar disease, anxiety. Past Surgical History: Angioplasty with stent placement multiple times in the last 4 or 5 years, cho lecystectomy, bilateral tubal ligation, and hysterectomy. Social History: The patient does smoke and has been counseled. Denies drinking of alcohol. Family History: Significant for diabetes and kidney failure and hypertension. Physical Examination: Vital Signs: Her vital signs are currently stable. She is afebrile. General: She is awake, alert, and oriented x3. Head and Neck: Cranial nerves 2 through 12 are grossly within normal limits. No neck masses. No JV D. Throat clear. Neck is supple. Chest: Clear. Heart: S1, S2. Abdomen: Soft. Extremity: Diminished dorsalis pedis and posterior tibial pulses. There is redness present in both lower extremities, but there is no warmth. There is some dry scaly skin present on the right side wo rse than the left. She has a partial-thickness wound on the right lateral leg approximately 3 x 1 cm with Silvadene dressing on it. She has wrinkling of the skin indicating the cellulitis is improving . Also some lymphedema is present on both legs. Laboratory Data: Reviewed. Her white count is normal. INR is 2.05. Chemistry reviewed. Hemoglobi n A1c is 6.6. The patient had venous Doppler, which did not show any DVT. She had an arterial Doppl er done as well on Wednesday night, which showed bilateral monophasic arterial waveforms in lower extrem ity may indicate significant aortoiliac disease. Assessment: A 66-year-old female with significant peripheral vascular disease, cellulitis, lymphedem a, and open wound on the right leg. Recommendations: At this time, antibiotics per Dr. Lowry. The patient will probably be discharged ho pr in 24-48 hours on oral antibiotics and [facility]. She does have a partial-thickness wound. We will continue the Silvadene for that, Lidex for the dry skin and Kerli x and [place] for some mild compression. When she is seen in the [facility] upon discharge, I can initiate more aggressive compression therapy after her cellulitis is under better control. /MODL Voice ID: [id number] Report ID: [id number]
[2022-04-27] MEDS: RIVAROXABAN 20 MG TABLET PO SCH (16:53)
[2022-04-27] MEDS: ATORVASTATIN 40 MG TAB PO SCH (21:00)
[2022-04-27] MEDS: TRAZODONE 50 MG TABLET PO SCH (21:03)
[2022-04-27] MEDS: VANCOMYCIN 1.5 GM in NA CHLORIDE 0.9% 500 ML IVPB SCH (21:04)
[2022-04-27] MEDS: HYDROCODONE/APAP 5/325 MG TAB PO PRN (23:50)
[2022-04-28] MEDS: PIPER TAZO 3.375 GM in NA CHLORIDE 0.9% 100 ML IV SCH ×3 (01:00→17:57)
[2022-04-28] MEDS: DIPHENHYDRAMINE 25 MG TAB/CAP PO PRN ×2 (02:06→22:05)
[2022-04-28] MEDS: ACETAMINOPHEN 500 MG TAB PO PRN (03:56)
[2022-04-28 07:50] LABS: Absolute Lymphocytes (CBC) 1.9 K/uL (0.7-4.9); Hematocrit 37.9 % (36.0-45.0); Lymphocytes % 21.7 % (15.3-44.8); MPV 7.9 fL (7.6-11.3); RBC Red Blood Cell Count 3.68 M/uL (3.86-4.86)
[2022-04-28 08:05] LABS: Magnesium 2.2 mg/dL (1.8-2.4); Potassium 4.3 mmol/L (3.5-5.1)
--- NOTE | 2022-04-28 08:17 | ECHO ---
HEIGHT: 5 ft 1 in WEIGHT: 190 lb 11.2 oz DATE OF STUDY: 04/27/[address]: Drew Lowry MD 2-DIMENSIONAL: YES M.MODE: YES DOPPLER: YES COLOR FLOW: YES TDS: PORTABLE: YES DEFINITY: BUBBLE STUDY: DIAGNOSIS: LEG EDEMA CARDIAC HISTORY: CATHERIZATION: SURGERY: PROSTHETIC VALVE: PACEMAKER: MEASUREMENTS (cm) DIASTOLIC (NORMALS) SYSTOLIC (NORMALS) IVSd 1.1 (0.6-1.2) LA Diam 3.6 (1.9-4.0) LVEF 69% LVIDd 3.9 (3.5-5.7) LVIDs 2.4 (2.0-3.5) %FS 39% LVPWd 1.2 (0.6-1.2) Ao Diam 2.7 (2.0-3.7) 2 DIMENSIONAL ASSESSMENT: RIGHT ATRIUM: NORMAL LEFT ATRIUM: NORMAL RIGHT VENTRICLE: NORMAL LEFT VENTRICLE: NORMAL TRICUSPID VALVE: MILD TRICUSPID REGURGITATION MITRAL VALVE: MILD MITRAL REGURGITATION PULMONIC VALVE: NORMAL AORTIC VALVE: NORMAL PERICARDIAL EFFUSION: NONE AORTIC ROOT: NORMAL LEFT VENTRICULAR WALL MOTION: NORMAL DOPPLER/COLOR FLOW: SEE BELOW COMMENTS: NORMAL LEFT VENTRICULAR EJECTION FRACTION 65-70%. MILD CONCENTRIC LEFT VENTRTICULAR HYPERTROPHY. MODERATE TO SEVERE PULMONARY HYPERTENSION WITH RIGHT VENTRICULAR SYSTOLIC PRESSURE OF 55-60 mmHg. MILD MITRAL REGURGITATION, MILD TRICUSPID REGURGITATION. TECHNOLOGIST: AGUILA PETER
--- NOTE | 2022-04-28 08:35 | PN ---
Date of Progress Note: 04/27/2022 Subjective: The patient was seen this morning for followup. No new complaints or problems reported by the patient. She was sleeping with oxygen. Denies any new complaints. Objective: Vital Signs: Reviewed. HEENT: Unremarkable. Lungs: Presence of wheezing in both lung gamboa present. Not using accessory muscles of respiration . Heart: Sounds normal. Abdomen: Soft. Bowel sounds normal. No guarding, rigidity, tenderness, distention. Extremities: Bilateral grade 1 pedal edema which is less compared to before and redness from both lo wer extremities is better, but left lower extremity improvement is somewhat less compared to the righ t lower extremity improvement. Impression: 1.Cellulitis, bilateral lower extremity. 2.Chronic obstructive pulmonary disease. 3.Peripheral vascular disease. 4.Coronary artery disease. 5.Smoking. Plan: We will go ahead and continue current vancomycin and Zosyn. We will go ahead and add oral dox ycycline. Continue current nebulizer treatment, which was changed to p.r.n. as of yesterday because the patient was refusing schedule doses. We will add Dulera inhaler 2 puffs 2 times a day, continue current DVT prophylaxis. The patient continues to smoke and even today she wanted to go down for [employer] and with her vascular problem in presence of smoking, prognosis remains poor. Consultation was requested from Dr. De Paz and he evaluated the patient. Echocardiogram was ordered to be done today. Today, hemoglobin A1c was 6.6. Vitamin B12 level was 190, folic acid was 5.1. For vitamin B12 defi ciency, 1 dose of vitamin B12 intramuscular injection 1000 mcg was ordered to be given today. Possible discharge to go home in the next 1 or 2 days. MATT/MODL Voice ID: [id number] Report ID: [id number]
[2022-04-28] MEDS: DULERA 200/5 (MOMETASONE/FORMOTEROL) INHALER IH SCH ×2 (09:21→22:05)
[2022-04-28] MEDS: buPROPion HCL 100 MG TAB PO SCH (09:22)
[2022-04-28] MEDS: GABAPENTIN 100 MG CAP PO SCH ×2 (09:24→22:05)
[2022-04-28] MEDS: DOXYCYCLINE 100 MG CAP PO SCH ×2 (09:24→22:05)
[2022-04-28] MEDS: NICOTINE 14 MG/PAT TD SCH (09:24)
[2022-04-28] MEDS: SILVER SULFADIAZINE 1% 50 GM TOP SCH (09:38)
[2022-04-28] MEDS: FOLBIC 1 TAB PO SCH (10:09)
[2022-04-28] MEDS: RIVAROXABAN 20 MG TABLET PO SCH (16:06)
[2022-04-28] MEDS: VANCOMYCIN 1.5 GM in NA CHLORIDE 0.9% 500 ML IVPB SCH (16:06)
[2022-04-28 21:06] VITALS: O2SAT 97
[2022-04-28] MEDS: TRAZODONE 50 MG TABLET PO SCH (22:05)
[2022-04-28] MEDS: HYDROCODONE/APAP 5/325 MG TAB PO PRN (22:05)
[2022-04-28] MEDS: ATORVASTATIN 40 MG TAB PO SCH (22:05)
--- NOTE | 2022-04-28 22:39 | PN ---
Date of Progress Note: 04/28/2022 Subjective: The patient was seen this morning for followup. No new complaints or problems reported by the patient. Her redness on both legs and swelling have significantly improved. She is complaini ng of some tingling, numbness and burning type of pain in both feet and lower leg. Objective: Vital Signs: Reviewed. HEENT: Unremarkable. Lungs: Clear to auscultation. No wheezing. No rales. Heart: Sounds normal. Abdomen: Soft. Bowel sounds normal. No guarding, rigidity, tenderness, or distention. Extremities: Trace leg edema and redness on both lower extremities, significantly has gotten better. Impression: 1.Cellulitis, bilateral legs. 2.Peripheral vascular disease. 3.Chronic obstructive pulmonary disease. 4.Coronary artery disease. Plan: We will go ahead and continue current antibiotics. Continue current DVT prophylaxis. We will continue current inhaler for COPD problem. The patient was asking me once again today if she can le ave her room and go down for smoking breaks and I talked to her that it is very important for her to quit smoking completely and if she does not, her risk of progression of vascular disease, which is ei ther peripheral vascular disease or coronary artery disease or any other vascular problem, she is at high risk of having complications related to that and with the leg problem she may end up losing her leg, if the circulation problem continues to get worse and as long as she continues to smoke, her pro gnosis is very poor. All those details were discussed with her and I encouraged her not to go down t o smoke because it is a safety concern also that while she is not on the medical floor, she is not be ing supervised. I will see her tomorrow for followup and possible discharge to go home tomorrow depe nding on her condition. Her hemoglobin A1c, which was done yesterday, is 6.6 indicating that she does have type 2 diabetes mellitus, but no need for any medications for it at thi s point. MATT/MODL Voice ID: [id number] Report ID: [id number]
[2022-04-29 06:36] VITALS: BMI 35.9
[2022-04-29] MEDS: VANCOMYCIN 1.5 GM in NA CHLORIDE 0.9% 500 ML IVPB SCH (09:00)
[2022-04-29] MEDS: SILVER SULFADIAZINE 1% 50 GM TOP SCH (09:00)
[2022-04-29] MEDS: PIPER TAZO 3.375 GM in NA CHLORIDE 0.9% 100 ML IV SCH (09:00)
[2022-04-29] MEDS: DOXYCYCLINE 100 MG CAP PO SCH (09:25)
[2022-04-29] MEDS: GABAPENTIN 100 MG CAP PO SCH (09:25)
[2022-04-29] MEDS: NICOTINE 14 MG/PAT TD SCH (09:25)
[2022-04-29] MEDS: DULERA 200/5 (MOMETASONE/FORMOTEROL) INHALER IH SCH (09:26)
[2022-04-29] MEDS: FOLBIC 1 TAB PO SCH (09:26)
[2022-04-29] MEDS: buPROPion HCL 100 MG TAB PO SCH (09:26)
[2022-04-29] MEDS: HYDROCODONE/APAP 5/325 MG TAB PO PRN (09:35)
[2022-04-29 11:22] VITALS: BP 135/67; TEMP 96.1
--- NOTE | 2022-04-30 01:24 | DS ---
Date of Discharge: 04/29/2022 Disposition: Discharged to go home. Physical Examination: HEENT: Unremarkable. Lungs: Clear to auscultation. Heart: Sounds normal. Abdomen: Soft. Bowel sounds normal. No guarding, rigidity, tenderness, or distention. Extremity: Trace leg edema. Redness on both lower extremities significantly better than before. Mu ltiple scabs present over right lower extremity. No open wound. Discharge Medications And Instructions: Continue all prior home medication except stop levofloxacin antibiotic, which you were taking prior to this hospital admission and start following new medication s: 1.Augmentin 875 mg 2 times a day with food for 10 days. 2.Doxycycline 100 mg 2 times a day for 10 days, avoid sunlight exposure while taking this medication . 3.Gabapentin 100 mg 2 times a day. 4.Folbic 1 tablet by mouth daily. 5.Apply Silvadene antibiotic cream to right leg daily. 6.Follow up with Dr[facility]. 7.Follow up at my office next week. 8.Oxygen 2 L/minute nasal cannula all the time. 9.Do not smoke. Laboratory Data: Upon admission white count was 10.3, hemoglobin 14.4, and platelets 248. Yesterday , white count was 8.8, hemoglobin 12.5, platelets 235. Chemistry: Upon admission sodium was 134, po tassium 3.7, chloride 97, bicarb 32, BUN 8, creatinine 0.75, glucose 126. Liver function tests unrem arkable. Vitamin B12 low at 190. Folic acid level was 5.1. Hemoglobin A1c was 6.6. 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 Echocardiogram from 04/27/2022 showed normal left ventricular ejection fraction of 65%-70%, mi ld concentric left ventricular hypertrophy, [id number] pulmonary hypertension, mild mitral re gurgitation, and mild tricuspid regurgitation. Hospital Course: This is a 66-year-old female patient admitted to the hospital after she presented t o emergency room and leg swelling, pain, and redness of both legs. Please see dictated H and P for m ore information. The patient was admitted to the hospital with cellulitis of both lower extremities. She had significant peripheral vascular disease for which she is under care of lime filter operator, Dr. Brent carrizales who has done angioplasty and stent placement in her leg and is planning to do another angiogram in the near future. He started her on Levaquin for cellulitis of her leg, which did not help to improv e so she was admitted to the hospital. After her admission to the hospital, she was started on IV va ncomycin and IV Zosyn and 2 to 3 days ago, we added oral doxycycline. Dr. De Paz from [facility] was consulted. Overall, the patient's condition has improved, cellulitis has shown significant impr ovement, and leg swelling has also shown significant improvement. We suspect that she has lymphedema of both lower extremities and Dr. De Paz will continue to follow up with her at [facility]. Silvadene topical cream was ordered to be applied to right lower extremity. The patient has so me tingling, numbness, and burning pain in both feet and both lower legs and gabapentin was started f or peripheral neuropathy type of symptoms. The patient continues to smoke and she was advised to ivan t smoking and she was made aware that if she does not quit smoking, her prognosis remains very poor t o the extent that with worsening of peripheral vascular disease, she may actually end up losing her l egs also and all those details were discussed with her. The patient was advised to use nicotine gum or patch and while in the hospital, nicotine patch was ordered for her. Final Diagnoses: 1.Cellulitis, bilateral lower extremities. 2.Lymphedema, bilateral legs. 3.Peripheral vascular disease. 4.Peripheral neuropathy. 5.Coronary artery disease. 6.Hypertension. 7.Hyperlipidemia. 8.Chronic obstructive pulmonary disease. 9.Pulmonary hypertension. 10.Anxiety. 11.Insomnia. 12.Vitamin B12 deficiency. 13.Type 2 diabetes mellitus. MATT/MODL Voice ID: [id number] Report ID: [id number]
== END 2022-04-29 12:52 | disposition home or self-care (01) | DRG 603 ==
LOC: ER 17:31 → ERHOLD 20:33 → 4TH 04-25 06:18
PROVIDERS: ADMIT Internal Medicine; ATTEND Internal Medicine
DX: L03.116 Cellulitis of left lower limb (principal); L03.115 Cellulitis of right lower limb; E78.5 Hyperlipidemia, unspecified; I10 Essential (primary) hypertension; F41.9 Anxiety disorder, unspecified; I89.0 Lymphedema, not elsewhere classified; J44.9 Chronic obstructive pulmonary disease, unspecified; E11.42 Type 2 diabetes mellitus with diabetic polyneuropathy; E11.51 Type 2 diabetes mellitus with diabetic peripheral angiopathy without gangrene; E53.8 Deficiency of other specified B group vitamins; I25.10 Atherosclerotic heart disease of native coronary artery without angina pectoris; G47.00 Insomnia, unspecified; F17.210 Nicotine dependence, cigarettes, uncomplicated; Z88.1 Allergy status to other antibiotic agents; Z95.5 Presence of coronary angioplasty implant and graft; Z98.51 Tubal ligation status; Z90.49 Acquired absence of other specified parts of digestive tract; Z79.01 Long term (current) use of anticoagulants; Z79.899 Other long term (current) drug therapy; Z90.710 Acquired absence of both cervix and uterus; Z20.822 Contact with and (suspected) exposure to COVID-19
CPT/HCPCS: 36415; 71046; 80048; 80053; 80061; 80202; 82607; 82746; 83036; 83605; 83735; 85025; 85610; 85730; 87040; 87811; 93005; 93306; 93925; 93970; 94640; 96365; 96366; 96375; 99284; J2543; J3370; J3420; J3535; J7040; J7050